=== PATIENT | female | born 1995 ===

== ENCOUNTER 2024-10-02 09:40 | Outpatient (CLI) | payer OTHER | END 2024-10-02 09:42 | disposition home or self-care (01) | LOC: PRENATAL 09:40 | PROVIDERS: ATTEND Obstetrics & Gynecology Maternal & Fetal Medicine | DX: O44.00 Complete placenta previa NOS or without hemorrhage, unspecified trimester (principal); Z3A.22 22 weeks gestation of pregnancy ==

== ENCOUNTER 2024-11-03 09:46 | Outpatient (CLI) | payer OTHER | END 2024-11-03 09:47 | disposition home or self-care (01) | LOC: PRENATAL 09:46 | PROVIDERS: ATTEND Obstetrics & Gynecology Maternal & Fetal Medicine | DX: O26.849 Uterine size-date discrepancy, unspecified trimester (principal); O36.8199 Decreased fetal movements, unspecified trimester, other fetus; O99.019 Anemia complicating pregnancy, unspecified trimester; O28.3 Abnormal ultrasonic finding on antenatal screening of mother; Z3A.27 27 weeks gestation of pregnancy ==

== ENCOUNTER 2024-12-14 09:31 | Outpatient (CLI) | payer OTHER | END 2024-12-14 09:32 | disposition home or self-care (01) | LOC: PRENATAL 09:31 | PROVIDERS: ATTEND Obstetrics & Gynecology Maternal & Fetal Medicine | DX: O26.849 Uterine size-date discrepancy, unspecified trimester (principal); O36.8199 Decreased fetal movements, unspecified trimester, other fetus; O28.3 Abnormal ultrasonic finding on antenatal screening of mother; O99.019 Anemia complicating pregnancy, unspecified trimester; Z3A.33 33 weeks gestation of pregnancy ==